=== PATIENT | female | born 1985 | race Asian ===

== ENCOUNTER 2019-01-24 14:26 | Emergency (ER) | payer OTHER ==
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
[2019-01-24 16:44] VITALS: BP 126/74
== END 2019-01-24 16:44 | disposition home or self-care (01) ==
LOC: ED 14:26
DX: S09.90XA Unspecified injury of head, initial encounter (principal); W50.0XXA Accidental hit or strike by another person, initial encounter; Y93.89 Activity, other specified; Y92.219 Unspecified school as the place of occurrence of the external cause; Y99.0 Civilian activity done for income or pay; Z87.820 Personal history of traumatic brain injury
CPT/HCPCS: 99281; 99282